=== PATIENT | female | born 1990 | race African-American/Black ===

== ENCOUNTER 2019-07-15 13:15 | Emergency (ER) | payer BC ==
--- NOTE | ~2019-07-15 | EKG ---
[facility] [address] ELECTROCARDIOGRAM REPORT Name: MAIRA ROWE Room #: REG [facility]#: [id number] Admission: 07/15/19 Attend Phys: Discharge: Date of : 86 Report #: [id number] THIS REPORT FOR: cc: CHRIS Awad family physician/PCP CHRIS Awad family physician/PCP Gricelda Madison MD ~ THIS REPORT FOR: //name// [facility] ED Test Date: 2019-07-15 Test Time: 13:21:16 Pat Name: MAIRA ROWE Department: Room: Gender: F Bottle Hop: JENNIFER : 1990 Requested By: Dafne Estevez Order Number: [id number] MD: Measurements Intervals [place] Rate: 101 P: 37 VT: 153 QRS: 56 QRSD: 86 T: 17 QT: 339 QTc: 440 Interpretive Statements Sinus tachycardia Probable left atrial enlargement Anteroseptal infarct, old No previous ECG available for comparison [email or web address] By: [id number] 1321 Epiphany Epiphany, /EPI
[~2019-07-15 13:15] MED LIST: IBUPROFEN 800800 MG PO; NOHOMEMEDICATIONS
[2019-07-15 13:26] VITALS: BP 141/82
== END 2019-07-15 14:14 | disposition home or self-care (01) ==
LOC: ER 13:15
DX: R07.9 Chest pain, unspecified (principal); F41.9 Anxiety disorder, unspecified